=== PATIENT | female | born 1960 | race Caucasian/White ===

== ENCOUNTER → 2016-12-09 16:57 | Outpatient (CLI) | payer OTHER | END | disposition home or self-care (01) | LOC: D.US 10:30 → D.MAMMO 11:30 → D.US 16:57 → D.MAMMO 12-28 08:30 | DX: R92.8 Other abnormal and inconclusive findings on diagnostic imaging of breast (principal) ==

== ENCOUNTER → 2017-02-09 09:28 | Outpatient (CLI) | payer MEDICAID | END | disposition home or self-care (01) | LOC: D.RAD 09:28 | DX: R05 Cough (principal) ==

== ENCOUNTER 2018-07-14 07:22 | Day surgery (SDC) | payer MEDICAID ==
[~2018-07-14 07:22] MED LIST: CIPRO500 MG PO; HYDROCODON-ACE1 EA10 PO; MORPHINE SULFAT30 M4 PO
[2018-07-14 07:44] LABS: BASOPHILS 0.4 % (0-2); EOSINOPHILS 1.2 % (0-7); HEMATOCRIT 43.3 % (36.0-48.0); HEMOGLOBIN 14.4 g/dL (12-16); IMMATURE GRANULOCYTES 0.1 % (0-5); LYMPHOCYTES 25.3 % (15-50); MCH 30.4 pg (26.0-34.0); MCHC 33.3 g/dL (31.0-37.0); MCV 91.4 fL (80.0-100.0); MEAN PLATELET VOLUME 10.7 fL (7.4-10.4); MONOCYTES 7.1 % (2-11); NEUTROPHILS 65.9 % (40-80); PLATELET COUNT 269 10x3/uL (130-400); RBC 4.74 10x6/uL (4.00-5.40); RDW 13.8 % (11.5-14.5); WBC 8.9 10x3/uL (4.8-10.8)
[2018-07-14 07:53] LABS: CALC OSMOLALITY 282 mosm/kg (275-300); CALCIUM 9.1 mg/dL (8.5-10.1); CARBON DIOXIDE 28.7 mmol/L (21.0-32.0); CHLORIDE - SERUM 106 mmol/L (98-107); CREATININE - SERUM 0.7 mg/dL (0.6-1.3); GLUCOSE 121 mg/dL (74-106); POTASSIUM - SERUM 4.2 mmol/L (3.5-5.1); SODIUM 142 mmol/L (136-145); UREA NITROGEN 11 mg/dL (7-18); eGFR NON AFRICAN AMERICAN > 90 mL/min (90-120)
[2018-07-14 08:30] VITALS: BP 133/84; BMI 25.1
[2018-07-14] MEDS ORDERED: HYDROCODON-ACE1 EA10 PO (10:38)
--- NOTE | 2018-07-14 16:24 | NUR ---
1300 IV DC'D AT 1300. CATHETER INTACT. NO BLEEDING AT SITE. BANDAID APPLIED.
--- NOTE | 2018-07-19 14:40 | OP ---
PATIENT NAME: TOMER CARRANZA MEDICAL RECORD: [id number] :60 LOCATION:D.OPS ADMISSION DATE: SURGEON: AZAEL LAM MD DATE OF OPERATION: 07/14/2018 PREOPERATIVE DIAGNOSES: 1. Gallstones. 2. Hypercholesterolemia. 3. Tobacco dependence syndrome. 4. Chronic pain medication use. POSTOPERATIVE DIAGNOSES: 1. Gallstones. 2. Hypercholesterolemia. 3. Tobacco dependence syndrome. 4. Chronic pain medication use. PROCEDURE: Laparoscopic cholecystectomy. SURGEON: Azael Lam MD REPORT OF PROCEDURE: The patient's abdomen was prepped and draped in sterile fashion. A cutdown was made on the superior aspect of the umbilicus, 0 Vicryls were placed on the fascia bilaterally and the fascia was incised with 15-blade. I then bluntly entered the peritoneal cavity and placed a 12-mm Chuy port. Under direct visualization, a 5 mm trocar was placed in the epigastrium and 2 more 5-mm trocars were placed in the right subcostal region. The gallbladder was grasped and elevated. The cystic artery and cystic duct were dissected free and these were clipped proximally and distally and ligated in standard fashion. The gallbladder was then taken off the liver bed using electrocautery and placed into the right upper quadrant. Any bleeding from the liver bed was then treated with electrocautery. At this point, the ports and insufflation were then removed and the gallbladder was taken out through the umbilicus. The umbilical fascia was closed with interrupted 0 Vicryls times 3. The wounds were then irrigated out with normal saline and infused with 10 mL of 0.25% Marcaine with epinephrine. The skin incisions were all closed with subcutaneous 5-0 Monocryl and dressed appropriately. COMPLICATIONS: None. CONDITION: Stable. ANESTHESIA: General endotracheal and local. BLOOD LOSS: Minimal. TRANSINT:[id number] Voice Confirmation ID: [id number] DOCUMENT ID: [id number] OPERATIVE REPORT [id number] TOMER CARRANZA CHRISTIAN MD at 1440 CC: BRUNA GUAJARDO MD [id number] DICTATION DATE: 07/14/18 1044 OUTDOOR GUIDE: 07/14/18 1133 [facility] 07/14/18 [facility] [address] [place] [address]
== END 2018-07-14 13:22 | disposition home or self-care (01) ==
LOC: D.OPS 07:22 → D.PAN 07:22 → D.OPS 10:00
PROVIDERS: ATTEND Surgery
DX: K80.80 Other cholelithiasis without obstruction (principal); E78.00 Pure hypercholesterolemia, unspecified; F17.200 Nicotine dependence, unspecified, uncomplicated